=== PATIENT | female | born 1990 | race Asian ===

== ENCOUNTER 2020-02-27 22:32 | Inpatient (IN) ==
[2020-02-27] MEDS ORDERED: BUPIVACAINE 0.25% 30 ML VIAL ONE (23:18)
[2020-02-27] MEDS ORDERED: ePHEDrine sulfate 50 MG/ML AMP ONE (23:18)
[2020-02-27] MEDS ORDERED: fentaNYL 2MCG/ML ROPIV 1.25MG/ML 100 ML BAG EPI ONE (23:19)
[2020-02-27] MEDS ORDERED: fentaNYL citrate 100 MCG/2 ML VIAL ONE (23:19)
[2020-02-27] MEDS ORDERED: OXYTOCIN 30 UNITS/500 ML BAG IV PRN ×2 (23:23→23:37)
[2020-02-27] MEDS ORDERED: PENICILLIN G POTASSIUM 6 MU in DEXTROSE 5% 250 ML IV STA (23:23)
[2020-02-27] MEDS: LACTATED RINGER'S 1,000 ML IV PRN (23:30)
--- NOTE | 2020-02-27 23:30 | Anesthesiology Consultation ---
Date of Service February 27, 2020 Assessment & Plan Chart Review Chart Review: Acceptable Risk for Surgery, Patient NOT seen in Pre Admission Testing and Acceptable Risk for Labor Epidural Consults Requested none ASA ASA2 Proposed Anesthesia Anesthesia Type: Labor Epidural and CSE History Height/Weight Height: 5 ft 4 in Weight: 75.296 kg Allergies Allergy/AdvReac Type Severity Reaction Status Date / Time No Known Allergies Allergy Verified 02/27/20 09:31 Medications Home Medications Medication Instructions Recorded Confirmed Last Taken prenat.vits,nani,obb-xoho-tfhyf 1 tab PO DAILY 07/25/19 02/27/20 1 Day Ago ~02/26/20 Past Medical History Medical History Encounter for anatomic survey No pertinent past medical history Exercise / Class Metabolic Activity II 4-5 Yardwork/Stairs/Walk up hill Past Family History Family History Other No pertinent family history Past Surgical History Surgical History No pertinent past surgical history Past Anesthesia History No Hx of Anesthesia Complications and No Family Hx of Anesthesia Complications History of PONV No Hx of PONV and No Hx of Motion Sickness Social History Smoking Status: Never smoker Hx Alcohol Use: No Hx Substance Use: No Physical Exam Vital Signs Last Vital Signs Temp 36.4 C L 02/27/20 22:35 Pulse 93 H 02/27/20 22:34 Resp 20 02/27/20 22:35 BP 119/81 02/27/20 22:34
--- NOTE | 2020-02-27 23:37 | History & Physical Report ---
Date of Service February 27, 2020 Assessment & Plan (1) Supervision of normal first : Admit to L&D, EFM/toco, labs, Pen G. OK for epidural. (2) GBS (group B Streptococcus carrier), +RV culture, currently : History of Present Illness Chief Complaint: contractions Primary Care Provider: NO PCP 29 yo @ 39 1/7, contractions Q 2 min. Was checked at office visit earlier today, fingertip. Now 3cm. No ROM, no vaginal bleeding. + movement. GBS+ Allergies Allergy/AdvReac Type Severity Reaction Status Date / Time No Known Allergies Allergy Verified 02/27/20 09:31 Home Medications Home Medications Medication Instructions Recorded Confirmed Type prenat.vits,nani,[id number]-[id number]-[id number] 1 tab PO DAILY 07/25/19 02/27/20 History Patient History Medical History Encounter for anatomic survey No pertinent past medical history Surgical History No pertinent past surgical history Family History Other No pertinent family history Social History (Updated 07/25/19 @ 09:07 by Sammie Cardona) Smoking Status: Never smoker Hx Alcohol Use: No Hx Substance Use: No Preferred Language: Cantonese Malian Communication Ability: Effective Research Development Director Required: No Beliefs That Will Affect Care: None marital status: marital status details: Guevara Aranda (29) Current Living Situation: Spouse Current Living Situation Comment: lives with spoue. current occupational status: employed Other Information That Helps Us Care for You: No Feels Safe at Home: Yes Safety Concerns: Feels Safe At This Time Review of Systems All systems reviewed & are unremarkable except as noted in HPI & below Physical Exam Constitutional: WD/WN, vitals as above Respiratory: normal respiratory effort, lungs clear to auscultation no respiratory distress Cardiovascular: Rate/Rhythm: regular rate and regular rhythm Gastrointestinal (Abdomen): Inspection/Auscultation: abdomen normal to inspection Percussion/Palpation: abdomen soft; abdomen nontender Gravid. No s/s chorio or abruption. Skin: no rashes, warm and dry Psychiatric: A+Ox3, euthymic affect Results & Data ([facility]) Vital Signs (Past 12 Hours) Vital Signs Temp Pulse Resp BP 02/27/20 22:35 36.4 C L 20 02/27/20 22:34 93 H 119/81 Coding Level of Care Code None Diagnoses Supervision of normal first Z34.00 GBS (group B Streptococcus carrier), +RV culture, currently O99.820
[2020-02-27 23:43] LABS: Hematocrit (blood only) 40.2 % (37-47); Hemoglobin 13.6 g/dL (12.0-16.0); Mean Corpuscular Hemoglobin 32.2 pg (25-34); Mean Platelet Volume 10.2 fL (7.4-10.4); Platelet Count 132 K/uL (130-400); RDW Coefficient of Variation 13.5 % (11.5-14.5); RDW Standard Deviation 46.5 fL (36.4-46.3); Red Blood Count 4.23 M/uL (4.2-5.4); White Blood Count 12.84 K/uL (4.8-10.8)
[2020-02-27 23:53] LABS: Mean Corpuscular Hgb Conc 33.8 g/dL (32-36)
[2020-02-28] MEDS ORDERED: ONDANSETRON INJ 2 MG/ML 2 ML VIAL IV PRN (00:17)
[2020-02-28] MEDS ORDERED: DiphenhydrAMINE HCL 50 MG/ML VIAL IV PRN (00:17)
[2020-02-28] MEDS ORDERED: PROMETHAZINE HCL 25 MG in SODIUM CHLORIDE 0.9% 50 ML IV PRN (00:17)
[2020-02-28] MEDS ORDERED: NALOXONE HCL 0.4 MG/1 ML VIAL/CARP IV PRN (00:17)
[2020-02-28] MEDS ORDERED: fentaNYL 2MCG/ML ROPIV 1.25MG/ML 100 ML BAG EPI PRN (00:17)
[2020-02-28] MEDS ORDERED: NALOXONE HCL 1 MG in SODIUM CHLORIDE 0.9% 1000ML 1,000 ML IV PRN (00:17)
[2020-02-28] MEDS ORDERED: ePHEDrine sulfate 50 MG/ML AMP IV PRN (00:17)
[2020-02-28] MEDS: PENICILLIN G POTASSIUM 3 MU in DEXTROSE 5% 100 ML IV PRN ×2 (03:56→08:02)
[2020-02-28] MEDS: LACTATED RINGER'S 1,000 ML IV PRN (06:06)
--- NOTE | 2020-02-28 06:58 | Labor Progress Brief Note ---
Date of Service February 28, 2020 Subjective Epidural, but has been feeling urge to push. FHT 160, min to mod melanie with accels, variable decels with contractions/pushing. [place] Q 2 min station 2+ Started pushing at 4:40a - has occasional good pushing effort. Assessment & Plan Admission and Anticipated Discharge Date Admission Date: February 27, 2020 Results & Data ([facility]) Vital Signs (Past 12 Hours) Vital Signs Temp Pulse Resp BP Pulse Ox 02/28/20 06:48 90 96 02/28/20 06:47 96 H 86 L 02/28/20 06:45 20 02/28/20 06:43 97 H 78 L 02/28/20 06:41 105 H 88 L 02/28/20 06:38 96 H 97 02/28/20 06:35 92 H 85 L 02/28/20 06:33 88 97 02/28/20 06:31 36.8 C 02/28/20 06:30 92 H 142/83 H 02/28/20 06:29 20 02/28/20 06:28 91 H 78 L 02/28/20 06:26 96 H 90 02/28/20 06:23 93 H 97 02/28/20 06:20 94 H 89 L 02/28/20 06:18 91 H 98 02/28/20 06:15 90 20 127/77 02/28/20 06:13 97 H 84 L 02/28/20 06:08 90 97 02/28/20 06:07 102 H 81 L 02/28/20 06:03 90 98 02/28/20 06:00 91 H 125/76 84 L 02/28/20 05:58 90 99 02/28/20 05:57 38.4 C H 02/28/20 05:54 99 H 82 L 02/28/20 05:53 97 H 94 02/28/20 05:48 89 98 02/28/20 05:46 88 129/66 02/28/20 05:45 96 H 87 L 02/28/20 05:43 93 H 98 02/28/20 05:38 88 99 02/28/20 05:36 95 H 91 02/28/20 05:33 96 H 81 L 02/28/20 05:30 93 H 92 02/28/20 05:28 87 99 02/28/20 05:24 88 89 L 02/28/20 05:23 86 98 02/28/20 05:18 102 H 96 02/28/20 05:15 88 22 117/72 02/28/20 05:13 90 99 02/28/20 05:08 91 H 100 02/28/20 05:03 93 H 97 02/28/20 05:00 20 02/28/20 04:58 86 99 02/28/20 04:55 85 91 02/28/20 04:53 88 99 02/28/20 04:48 90 100 02/28/20 04:44 90 91 02/28/20 04:43 89 96 02/28/20 04:40 37.2 C 02/28/20 04:38 80 100 02/28/20 04:33 84 100 02/28/20 04:30 85 20 109/73 02/28/20 04:28 79 100 02/28/20 04:23 79 99 02/28/20 04:18 80 98 02/28/20 04:15 75 118/78 02/28/20 04:13 79 99 02/28/20 04:08 82 99 02/28/20 04:03 84 98 02/28/20 04:00 83 16 120/73 02/28/20 03:58 79 99 02/28/20 03:53 80 98 02/28/20 03:48 83 98 02/28/20 03:45 78 114/67 02/28/20 03:43 77 98 02/28/20 03:38 80 98 02/28/20 03:33 79 98 02/28/20 03:30 77 18 114/71 02/28/20 03:28 81 98 02/28/20 03:23 82 98 02/28/20 03:18 86 97 02/28/20 03:15 73 117/71 02/28/20 03:13 84 97 02/28/20 03:08 80 97 02/28/20 03:03 83 96 02/28/20 03:00 80 18 117/69 02/28/20 02:58 80 97 02/28/20 02:53 81 97 02/28/20 02:48 84 98 02/28/20 02:46 83 116/70 02/28/20 02:43 83 98 02/28/20 02:40 37.1 C 02/28/20 02:38 89 99 02/28/20 02:33 90 98 02/28/20 02:30 90 111/70 02/28/20 02:29 20 02/28/20 02:28 82 98 02/28/20 02:23 82 97 02/28/20 02:18 86 99 02/28/20 02:15 85 112/66 02/28/20 02:13 83 98 02/28/20 02:08 86 99 02/28/20 02:03 86 99 02/28/20 02:00 84 20 112/68 02/28/20 01:58 82 99 02/28/20 01:53 81 98 02/28/20 01:48 87 98 02/28/20 01:45 85 115/71 02/28/20 01:43 86 99 02/28/20 01:38 82 98 02/28/20 01:33 85 99 02/28/20 01:31 80 118/73 02/28/20 01:28 82 98 02/28/20 01:23 91 H 98 02/28/20 01:18 83 97 02/28/20 01:15 82 123/68 02/28/20 01:13 87 96 02/28/20 01:08 84 99 02/28/20 01:03 84 99 02/28/20 01:01 90 119/62 02/28/20 01:00 02/28/20 00:58 87 100 02/28/20 00:53 85 98 02/28/20 00:48 87 99 02/28/20 00:45 85 109/68 02/28/20 00:43 83 100 02/28/20 00:38 91 H 99 02/28/20 00:33 88 99 02/28/20 00:29 20 02/28/20 00:28 85 113/67 100 02/28/20 00:25 36.4 C L 20 02/28/20 00:23 94 H 104/67 99 02/28/20 00:20 20 02/28/20 00:18 92 H 112/67 99 02/28/20 00:16 90 115/69 02/28/20 00:15 20 02/28/20 00:14 90 118/66 02/28/20 00:13 91 H 99 02/28/20 00:12 88 122/77 02/28/20 00:10 86 20 121/83 02/28/20 00:08 93 H 116/84 100 02/28/20 00:04 85 93 02/28/20 00:03 92 H 98 02/27/20 23:58 91 H 99 02/27/20 23:54 87 111/83 02/27/20 23:53 90 99 02/27/20 22:35 36.4 C L 20 02/27/20 22:34 93 H 119/81 Coding Level of Care Code None
[2020-02-28] MEDS ORDERED: GENTAMICIN CONSULT ACTIVE PRN (07:10)
--- NOTE | 2020-02-28 07:12 | Labor Progress Brief Note ---
Date of Service February 28, 2020 Subjective Patient is pushing, has temp 38 deg C. tachy 160s-170s. Starting ampicillin/gentamicin IV for chorioamnionitis. Assessment & Plan Admission and Anticipated Discharge Date Admission Date: February 27, 2020 Results & Data ([facility]) Vital Signs (Past 12 Hours) Vital Signs Temp Pulse Resp BP Pulse Ox 02/28/20 07:08 96 H 97 02/28/20 07:06 94 H 77 L 02/28/20 07:03 93 H 96 02/28/20 07:01 91 H 133/67 02/28/20 07:00 92 H 84 L 02/28/20 06:59 38.0 C H 02/28/20 06:58 107 H 80 L 02/28/20 06:54 94 H 85 L 02/28/20 06:53 90 97 02/28/20 06:48 90 96 02/28/20 06:47 96 H 86 L 02/28/20 06:45 20 02/28/20 06:43 97 H 78 L 02/28/20 06:41 105 H 88 L 02/28/20 06:38 96 H 97 02/28/20 06:35 92 H 85 L 02/28/20 06:33 88 97 02/28/20 06:31 36.8 C 02/28/20 06:30 92 H 142/83 H 02/28/20 06:29 20 02/28/20 06:28 91 H 78 L 02/28/20 06:26 96 H 90 02/28/20 06:23 93 H 97 02/28/20 06:20 94 H 89 L 02/28/20 06:18 91 H 98 02/28/20 06:15 90 20 127/77 02/28/20 06:13 97 H 84 L 02/28/20 06:08 90 97 02/28/20 06:07 102 H 81 L 02/28/20 06:03 90 98 02/28/20 06:00 91 H 125/76 84 L 02/28/20 05:58 90 99 02/28/20 05:57 38.4 C H 02/28/20 05:54 99 H 82 L 02/28/20 05:53 97 H 94 02/28/20 05:48 89 98 02/28/20 05:46 88 129/66 02/28/20 05:45 96 H 87 L 02/28/20 05:43 93 H 98 02/28/20 05:38 88 99 02/28/20 05:36 95 H 91 02/28/20 05:33 96 H 81 L 02/28/20 05:30 93 H 92 02/28/20 05:28 87 99 02/28/20 05:24 88 89 L 02/28/20 05:23 86 98 02/28/20 05:18 102 H 96 02/28/20 05:15 88 22 117/72 02/28/20 05:13 90 99 02/28/20 05:08 91 H 100 02/28/20 05:03 93 H 97 02/28/20 05:00 20 02/28/20 04:58 86 99 02/28/20 04:55 85 91 02/28/20 04:53 88 99 02/28/20 04:48 90 100 02/28/20 04:44 90 91 02/28/20 04:43 89 96 02/28/20 04:40 37.2 C 02/28/20 04:38 80 100 02/28/20 04:33 84 100 02/28/20 04:30 85 20 109/73 02/28/20 04:28 79 100 02/28/20 04:23 79 99 02/28/20 04:18 80 98 02/28/20 04:15 75 118/78 02/28/20 04:13 79 99 02/28/20 04:08 82 99 02/28/20 04:03 84 98 02/28/20 04:00 83 16 120/73 02/28/20 03:58 79 99 02/28/20 03:53 80 98 02/28/20 03:48 83 98 02/28/20 03:45 78 114/67 02/28/20 03:43 77 98 02/28/20 03:38 80 98 02/28/20 03:33 79 98 02/28/20 03:30 77 18 114/71 02/28/20 03:28 81 98 02/28/20 03:23 82 98 02/28/20 03:18 86 97 02/28/20 03:15 73 117/71 02/28/20 03:13 84 97 02/28/20 03:08 80 97 02/28/20 03:03 83 96 02/28/20 03:00 80 18 117/69 02/28/20 02:58 80 97 02/28/20 02:53 81 97 02/28/20 02:48 84 98 02/28/20 02:46 83 116/70 02/28/20 02:43 83 98 02/28/20 02:40 37.1 C 02/28/20 02:38 89 99 02/28/20 02:33 90 98 02/28/20 02:30 90 111/70 02/28/20 02:29 20 02/28/20 02:28 82 98 02/28/20 02:23 82 97 02/28/20 02:18 86 99 02/28/20 02:15 85 112/66 02/28/20 02:13 83 98 02/28/20 02:08 86 99 02/28/20 02:03 86 99 02/28/20 02:00 84 20 112/68 02/28/20 01:58 82 99 02/28/20 01:53 81 98 02/28/20 01:48 87 98 02/28/20 01:45 85 115/71 02/28/20 01:43 86 99 02/28/20 01:38 82 98 02/28/20 01:33 85 99 02/28/20 01:31 80 118/73 02/28/20 01:28 82 98 02/28/20 01:23 91 H 98 02/28/20 01:18 83 97 02/28/20 01:15 82 123/68 02/28/20 01:13 87 96 02/28/20 01:08 84 99 02/28/20 01:03 84 99 02/28/20 01:01 90 119/62 02/28/20 01:00 20 02/28/20 00:58 87 100 02/28/20 00:53 85 98 02/28/20 00:48 87 99 02/28/20 00:45 85 109/68 02/28/20 00:43 83 100 02/28/20 00:38 91 H 99 02/28/20 00:33 88 99 02/28/20 00:29 20 02/28/20 00:28 85 113/67 100 02/28/20 00:25 36.4 C L 20 02/28/20 00:23 94 H 104/67 99 02/28/20 00:20 20 02/28/20 00:18 92 H 112/67 99 02/28/20 00:16 90 115/69 02/28/20 00:15 20 02/28/20 00:14 90 118/66 02/28/20 00:13 91 H 99 02/28/20 00:12 88 122/77 02/28/20 00:10 86 20 121/83 02/28/20 00:08 93 H 116/84 100 02/28/20 00:04 85 93 02/28/20 00:03 92 H 98 02/27/20 23:58 91 H 99 02/27/20 23:54 87 111/83 02/27/20 23:53 90 99 02/27/20 22:35 36.4 C L 02/27/20 22:34 93 H 119/81 Coding Level of Care Code None
[2020-02-28] MEDS ORDERED: AMPICILLIN 2,000 MG in SODIUM CHLOR 0.9% AD-VAN 100 ML IV SCH (07:15)
[2020-02-28] MEDS ORDERED: GENTAMICIN SULFATE 375 MG in DEXTROSE 5% 100 ML IV SCH (07:45)
--- NOTE | 2020-02-28 08:39 | Labor Progress Brief Note ---
Date of Service February 28, 2020 Subjective Patient pushing with fairly poor effort Assessment & Plan (1) Supervision of normal first : Plan to have patient push another 30 minutes and then will likely assist with a vacuum secondary to poor effort and maternal exhaustion. Patient febrile and amp and gent ordered. Bladder just drained of urine. Anticipate vaginal delivery. Fetus overall reassuring. Admission and Anticipated Discharge Date Admission Date: February 27, 2020 Physical Exam Constitutional: WD/WN, vitals as above Psychiatric: A+Ox3, euthymic affect Genitourinary: cx--c/c/+3 toco--q2-3min efm--160s with mod variability, variables with pushing. Results & Data ([facility]) Vital Signs (Past 12 Hours) Vital Signs Temp Pulse Resp BP Pulse Ox 02/28/20 08:33 94 H 96 02/28/20 08:31 106 H 131/74 87 L 02/28/20 08:28 92 H 97 02/28/20 08:23 91 H 98 02/28/20 08:18 95 H 97 02/28/20 08:15 93 H 133/77 02/28/20 08:13 93 H 96 02/28/20 08:08 92 H 99 02/28/20 08:03 95 H 97 02/28/20 08:00 93 H 129/60 02/28/20 07:58 91 H 98 02/28/20 07:53 93 H 96 02/28/20 07:50 98 H 85 L 02/28/20 07:48 38.6 C H 96 H 18 97 02/28/20 07:46 100 H 135/66 02/28/20 07:43 105 H 98 02/28/20 07:38 92 H 95 02/28/20 07:33 97 H 96 02/28/20 07:32 97 H 88 L 02/28/20 07:31 94 H 118/65 02/28/20 07:28 107 H 98 02/28/20 07:23 94 H 98 02/28/20 07:20 106 H 89 L 02/28/20 07:18 95 H 96 02/28/20 07:16 93 H 158/65 H 02/28/20 07:14 99 H 87 L 02/28/20 07:13 95 H 97 02/28/20 07:08 96 H 97 02/28/20 07:06 94 H 77 L 02/28/20 07:03 93 H 96 02/28/20 07:01 91 H 133/67 02/28/20 07:00 92 H 84 L 02/28/20 06:59 38.0 C H 02/28/20 06:58 107 H 80 L 02/28/20 06:54 94 H 85 L 02/28/20 06:53 90 97 02/28/20 06:48 90 96 02/28/20 06:47 96 H 86 L 02/28/20 06:45 20 02/28/20 06:43 97 H 78 L 02/28/20 06:41 105 H 88 L 02/28/20 06:38 96 H 97 02/28/20 06:35 92 H 85 L 02/28/20 06:33 88 97 02/28/20 06:31 36.8 C 02/28/20 06:30 92 H 142/83 H 02/28/20 06:29 20 02/28/20 06:28 91 H 78 L 02/28/20 06:26 96 H 90 02/28/20 06:23 93 H 97 02/28/20 06:20 94 H 89 L 02/28/20 06:18 91 H 98 02/28/20 06:15 90 20 127/77 02/28/20 06:13 97 H 84 L 02/28/20 06:08 90 97 02/28/20 06:07 102 H 81 L 02/28/20 06:03 90 98 02/28/20 06:00 91 H 125/76 84 L 02/28/20 05:58 90 99 02/28/20 05:57 38.4 C H 02/28/20 05:54 99 H 82 L 02/28/20 05:53 97 H 94 02/28/20 05:48 89 98 02/28/20 05:46 88 129/66 02/28/20 05:45 96 H 87 L 02/28/20 05:43 93 H 98 02/28/20 05:38 88 99 02/28/20 05:36 95 H 91 02/28/20 05:33 96 H 81 L 02/28/20 05:30 93 H 92 02/28/20 05:28 87 99 02/28/20 05:24 88 89 L 02/28/20 05:23 86 98 02/28/20 05:18 102 H 96 02/28/20 05:15 88 22 117/72 02/28/20 05:13 90 99 02/28/20 05:08 91 H 100 02/28/20 05:03 93 H 97 02/28/20 05:00 20 02/28/20 04:58 86 99 02/28/20 04:55 85 91 02/28/20 04:53 88 99 02/28/20 04:48 90 100 02/28/20 04:44 90 91 02/28/20 04:43 89 96 02/28/20 04:40 37.2 C 02/28/20 04:38 80 100 02/28/20 04:33 84 100 02/28/20 04:30 85 20 109/73 02/28/20 04:28 79 100 02/28/20 04:23 79 99 02/28/20 04:18 80 98 02/28/20 04:15 75 118/78 02/28/20 04:13 79 99 02/28/20 04:08 82 99 02/28/20 04:03 84 98 02/28/20 04:00 83 16 120/73 02/28/20 03:58 79 99 02/28/20 03:53 80 98 02/28/20 03:48 83 98 02/28/20 03:45 78 114/67 02/28/20 03:43 77 98 02/28/20 03:38 80 98 02/28/20 03:33 79 98 02/28/20 03:30 77 18 114/71 02/28/20 03:28 81 98 02/28/20 03:23 82 98 02/28/20 03:18 86 97 02/28/20 03:15 73 117/71 02/28/20 03:13 84 97 02/28/20 03:08 80 97 02/28/20 03:03 83 96 02/28/20 03:00 80 18 117/69 02/28/20 02:58 80 97 02/28/20 02:53 81 97 02/28/20 02:48 84 98 02/28/20 02:46 83 116/70 02/28/20 02:43 83 98 02/28/20 02:40 37.1 C 02/28/20 02:38 89 99 02/28/20 02:33 90 98 02/28/20 02:30 90 111/70 02/28/20 02:29 20 02/28/20 02:28 82 98 02/28/20 02:23 82 97 02/28/20 02:18 86 99 02/28/20 02:15 85 112/66 02/28/20 02:13 83 98 02/28/20 02:08 86 99 02/28/20 02:03 86 99 02/28/20 02:00 84 20 112/68 02/28/20 01:58 82 99 02/28/20 01:53 81 98 02/28/20 01:48 87 98 02/28/20 01:45 85 115/71 02/28/20 01:43 86 99 02/28/20 01:38 82 98 02/28/20 01:33 85 99 02/28/20 01:31 80 118/73 02/28/20 01:28 82 98 02/28/20 01:23 91 H 98 02/28/20 01:18 83 97 02/28/20 01:15 82 123/68 02/28/20 01:13 87 96 02/28/20 01:08 84 99 02/28/20 01:03 84 99 02/28/20 01:01 90 119/62 02/28/20 01:00 02/28/20 00:58 87 100 02/28/20 00:53 85 98 02/28/20 00:48 87 99 02/28/20 00:45 85 109/68 02/28/20 00:43 83 100 02/28/20 00:38 91 H 99 02/28/20 00:33 88 99 02/28/20 00:29 20 02/28/20 00:28 85 113/67 100 02/28/20 00:25 36.4 C L 20 02/28/20 00:23 94 H 104/67 99 02/28/20 00:20 20 02/28/20 00:18 92 H 112/67 99 02/28/20 00:16 90 115/69 02/28/20 00:15 20 02/28/20 00:14 90 118/66 02/28/20 00:13 91 H 99 02/28/20 00:12 88 122/77 02/28/20 00:10 86 20 121/83 02/28/20 00:08 93 H 116/84 100 02/28/20 00:04 85 93 02/28/20 00:03 92 H 98 02/27/20 23:58 91 H 99 02/27/20 23:54 87 111/83 02/27/20 23:53 90 99 02/27/20 22:35 36.4 C L 20 02/27/20 22:34 93 H 119/81 Coding Level of Care Code None Diagnoses Supervision of normal first Z34.00
[2020-02-28] MEDS ORDERED: ACETAMINOPHEN 325 MG TAB PO PRN (09:35)
[2020-02-28] MEDS ORDERED: OXYCODONE/ACETAMINOPHEN 5mg/325mg TAB PO PRN (09:35)
[2020-02-28] MEDS ORDERED: IBUPROFEN 600 MG TAB PO PRN (09:35)
--- NOTE | 2020-02-28 09:35 | Anesthesia Procedure Note ---
Date of Service February 28, 2020 Anesthesia Post Epidural Note Vital Signs Vital Signs: Temp Pulse Resp BP Pulse Ox 37.8 C H 93 H 18 108/65 82 L 02/28/20 08:46 02/28/20 09:30 02/28/20 07:48 02/28/20 09:30 02/28/20 09:08 Pain Intensity Bilateral Back: Pain Intensity: 0 Notes Mental Status: alert / awake / arousable and participated in evaluation Nausea / Vomiting: adequately controlled Pain: adequately controlled Airway Patency, RR, SpO2: stable & adequate BP & HR: stable & adequate Hydration State: stable & adequate Neuraxial Anesthesia: was administered and sensory block is resolving Anesthetic Complications: no major complications apparent and Pt Satisfied with anesthetic care Epidural: Removed without complications and With tip intact
--- NOTE | 2020-02-28 09:45 | Delivery Summary ---
Vaginal Delivery Summary Date of Service February 28, 2020 Vaginal Delivery Summary Pre-operative Diagnosis: at 39 weeks labor gbs positive. chorio maternal exhaustion Post-operative Diagnosis: same Procedure: epidural pcn for gbs prophylaxis iv antibiotics for chorio vavd second degree laceration with repair EBL: 400c Anesthesia: epidural and local infiltration of lidocaine to the perineum/vagina Procedure: The patient pushed for approximately 4 hours to the point of maternal exhaustion. Offered vacuum assistance for delivery. Discussed with the patient and support the r/b/ of vavd including 3/4 degree tear, brusing to baby's head. Bladder had been drained of urine shorly after. Fetus was at +3 station and tony position. Vacuum applied, pressure never greater than [id number]. Over the next contraction, with no pop offs, patient delivered a viable male in tony position. A loose nuchal cord x 1 was reduced and the rest of the infant was then delivered without difficulty. The baby was vigorous. The nose and mouth were bulb suctioned and the infant was placed in the maternal abdomen for drying and attention. Cord was clamped and cut at one minute of life. Cord blood and segment obtained. Placenta delivered spontaneous, intact with a three vessel cord. Cervix/sulci/rectum were intact. A second degree perineal laceration was repaired in the normal standard fashion. Hemostasis obtained with dilute pitocin and fundal massage. Apgars were 8/9. Mother and baby doing well at the end of the delivery. [facility] [place] Vaginal Delivery Charge Vaginal Delivery Codes: 18455 global code for the antepartum, delivery, and post-
[2020-02-28] MEDS ORDERED: SUPERCREAM 0.870% 15 GM JAR EXT PRN (09:52)
[2020-02-28] MEDS ORDERED: OXYTOCIN 30 UNITS/500 ML BAG IV PRN (09:52)
[2020-02-28] MEDS ORDERED: HYDROCORTISONE ACETATE 25 MG SUPP PR PRN (09:52)
[2020-02-28] MEDS ORDERED: BENZOCAINE 20% AER SPR 82.5 GM CAN EXT PRN (09:52)
[2020-02-28] MEDS ORDERED: bisacodyL 10 MG SUPP PR PRN (09:52)
[2020-02-28] MEDS ORDERED: DIPHTHERIA/TETANUS/PERTUSSIS 0.5 ML SYR/VIAL IM ONE (09:52)
[2020-02-28] MEDS: DOCUSATE SODIUM 100 MG CAP PO SCH (20:21)
[2020-02-29 05:40] LABS: Hematocrit (blood only) 31.7 % (37-47); Hemoglobin 10.8 g/dL (12.0-16.0)
--- NOTE | 2020-02-29 06:19 | Obstetrical Progress Note ---
Date of Service <Shelley Bruno DO - Last Filed: 02/29/20 07:31> February 29, 2020 Assessment & Plan <DO Carline Mc Last Filed: 02/29/20 07:31> (1) Normal course: - Hx: GBS+, rubella immune, and Rh+ - Peripartum course complicated by chorioamnionitis; pt received ampicilin and gentamicin during delivery. No recurrent fevers. Pt has been afebrile since delivery, Tmax 37.3C, most recent 36.4C - Feels well today. Eating well, voiding well, ambulating well. - Encouraged patient to continue to bring baby to breast for stimulation of milk let down. Plan nurse to meet with pt. - Pain well controlled with ibuprofen 600mg Q4H PRN - Routine vaginal delivery care -- OOB, ambulation, diet progression as tolerated - After discharge will have 6 week follow-up with Dr. Stephens. - Plan for d/c home tomorrow. Subjective <Shelley Bruno DO - Last Filed: 02/29/20 07:31> Travis Fernando is a 29 y/o female who is PPD #1 following VAVD with epidural at 39 1/7 weeks. Peripartum hx complicated by chorioamnionitis; received gentamicin and ampicilin prior to delivery. Pt denies persistent or recurrent fever. She reports feeling well overall this morning. Minimal abdominal cramping & 2-3/10 pain well managed on analgesics. Voiding without difficulty; some external burning with urination but no internal dysuria or hematuria. Tolerating meals overnight and able to ambulate some. + passing gas and + bowel movement since delivery. Has some persistent lochia with some improvement this morning. Currently both breast and bottle feeding. Patient states that she wants to also bottle feed as she is concerned that her milk isn't coming in and she won't have enough milk for the baby. Review of Systems Denies fever or chills. Denies shortness of breath or cough. Denies chest pain. Denies breast pain. Denies dysuria. Denies leg pain or leg swelling. Denies headache or changes in vision. Physical Exam <Shelley Bruno DO - Last Filed: 02/29/20 07:31> General: Alert, oriented. No acute distress. Cardiac: Regular rate and rhythm. No murmurs. Respiratory: Clear to auscultation bilaterally a/p, no wheezes/rales/rhonchi. No increased work of breathing. Symmetrical chest rise. No respiratory distress. Abdomen: Soft, nontender, nondistended. Bowel sounds present. Uterus: Uterine fundus firm, palpable 1 cm below umbilicus. Lower Extremities: No lower extremity edema or swelling. No deep calf pain. Byron's negative bilaterally. Results & Data ([facility]) <Shelley Bruno DO - Last Filed: 02/29/20 07:31> Vital Signs (Past 12 Hours) Vital Signs Temp Pulse Resp BP BP Pulse Ox 02/29/20 03:35 36.4 C L 80 14 103/65 99 02/29/20 00:00 36.5 C 82 14 107/71 99 02/28/20 20:10 36.5 C 98 H 16 103/72 97 Laboratory Results H/H 10.8/31.7 this morning <Nereyda Stephens MD, FACOG - Last Filed: 02/29/20 07:36> Co-Signing Physician Notes Resident Physician Supervision Note: I interviewed and examined the patient. Discussed with Dr. Bruno and agree with findings and plan as documented in the note. Any exceptions or clarifications are listed here: Doing well. Routine pp care. No further temps noted. Documented By: Nereyda Stephens MD, FACOG
[2020-02-29] MEDS: PRENATAL VITAMIN 1 TAB PO SCH (09:20)
[2020-02-29] MEDS: DOCUSATE SODIUM 100 MG CAP PO SCH ×2 (09:20→21:02)
[2020-02-29] MEDS ORDERED: bisacodyL 5 MG TABEC PO SCH (20:00)
--- NOTE | 2020-03-01 06:35 | Obstetrical Progress Note ---
Date of Service <Shelley Bruno DO - Last Filed: 03/01/20 07:05> March 01, 2020 Assessment & Plan <Shelleyanders Bruno DO - Last Filed: 03/01/20 07:05> (1) Normal course: - Delivery complicated by chorioamnionitis; pt received ampicilin and gentamicin. course, pt has been afebrile. - Also GBS + and received penicilin G during labor. No further concerns. - Feels well today. Eating well, voiding well, ambulating well. - Pain well controlled with ibuprofen 600mg Q4H PRN - Routine care -- OOB, ambulation, diet progression as tolerated - After discharge will have 6 week follow-up with Dr. Stephens. - Plan for d/c home today. Subjective <Shelley MohanJanuary Bruno DO - Last Filed: 03/01/20 07:05> Travis Fernando is a 29 y/o female who is PPD #2 following VAVD with epidural at 39 1/7 weeks. She reports feeling well overall this morning. No abdominal cramping and 2/10 pain, mostly in her bottom/perineal area, well managed on analgesics. Voiding without difficulty. Tolerating meals overnight without difficulty. Patient has been able to ambulate some. + passing gas and + bowel movement. Has persistent lochia with improvement this morning. Currently both and bottle feeding as she is "concerned there is not enough breast milk." Review of Systems Denies fever or chills. Denies shortness of breath or cough. Denies chest pain. Denies breast pain. Denies nausea/vomiting. Denies dysuria. Denies leg pain or leg swelling. Denies headache or changes in vision. Physical Exam <Shelley Bruno DO - Last Filed: 03/01/20 07:05> General: Alert, oriented. No acute distress. Cardiac: Regular rate and rhythm. No murmurs. Respiratory: Clear to auscultation bilaterally a/p, no wheezes/rales/rhonchi. No increased work of breathing. Symmetrical chest rise. No respiratory distress. Abdomen: Soft, nontender, nondistended. Bowel sounds present. Uterus: Uterine fundus firm, palpable 1 cm below umbilicus. Lower Extremities: No lower extremity edema or swelling. No deep calf pain. H judith's negative bilaterally. Results & Data ([facility]) <Shelley Bruno DO - Last Filed: 03/01/20 07:05> Vital Signs (Past 12 Hours) Vital Signs Temp Pulse Resp BP Pulse Ox 02/29/20 23:35 36.5 C 87 14 109/69 98 02/29/20 19:40 36.6 C 86 14 115/65 99 <Juanito Eden Jr, MD, FACOG - Last Filed: 03/01/20 07:49> Co-Signing Physician Notes Resident Physician Supervision Note: I was present with Dr. Bruno during the history and exam. I discussed the case with the resident and agree with the findings and plan as documented in the note. Any exceptions or clarifications are listed here: Patient with one isolated temp spike. Received one dose of antibiotics, afebrile since. Pt desires d/c, instructions given. F/u in 6 weeks Documented By: Juanito Eden Jr, MD, FACOG
[2020-03-01] MEDS: PRENATAL VITAMIN 1 TAB PO SCH (08:50)
[2020-03-01] MEDS: DOCUSATE SODIUM 100 MG CAP PO SCH (08:50)
--- NOTE | 2020-03-05 02:57 | Discharge Summary (DS) ---
ADMIT DIAGNOSES: 1. Intrauterine at term in labor. 2. GBS positive culture. DISCHARGE DIAGNOSES: 1. Intrauterine at term in labor. 2. GBS positive culture. 3. Chorioamnionitis. 4. Maternal exhaustion. PROCEDURES: Epidural penicillin for GBS prophylaxis, IV antibiotics for chorioamnionitis. Vacuum assisted vaginal delivery for maternal exhaustion and second-degree laceration with repair. HISTORY OF PRESENT ILLNESS: The patient is a 29-year-old 1, para 0, female at 39 and 1/7th weeks, who presented in labor with contractions every 2 minutes. She was checked in the office earlier that day and was fingertip. She is now 3+ cm. For the rest of the patient's history, please see her history and physical. ASSESSMENT: This is a 29-year-old female G1, P0 at 39 and 1/7th weeks in active labor. HOSPITAL COURSE: The patient was admitted. She underwent penicillin prophylaxis for group B strep. She progressed slowly to be complete-complete and started pushing at approximately 5:30 a.m. on 02/28/2020. She then had a temperature to 38 degrees and tachycardia in the 160s to 170s that was diagnosed with chorioamnionitis and started on IV ampicillin and gentamicin. After about 4+ hours of pushing, the patient was maternally exhausted. The vertex was at +3 station. I offered the patient vacuum assistance, she accepted. We discussed the risks and benefits of vacuum assist, her bladder had been drained of urine. The fetus was at +3 station in ABIMAEL position. The vacuum was applied, it did not pop off and the was delivered. Please see the delivery note for further details. A second degree perineal laceration was repaired. The patient's course was uncomplicated and she was discharged home on day #2. She did not have a subsequent fever after the delivery of her baby and did not receive further antibiotics.
== END 2020-03-01 15:20 | disposition home or self-care (01) | DRG 805 ==
LOC: OPB 22:32 → 4S1 22:33 → 4S2 02-28 11:59